=== PATIENT | male | born 1955 | race Caucasian/White ===

== ENCOUNTER → 2025-01-31 | Outpatient (CLI) | payer MEDICARE, OTHER, SELFPAY ==
--- NOTE | 2025-01-31 14:18 | ST.MBS ---
Modified Barium Swallow Patient Information Study Date: 01/31/25 Study Time: 13:00 Direct Billable Minutes: 81 Total Minutes procedure & reportin Diagnosis: Dysphagia R13.10 Referring Physician: Sherif Leiva Reason for Referral: The patient was referred for MBSS due to coughing when consuming foods. No choking episodes; however, he will cough and turn bright red from coughing at times. He consumes regular textures / thin liquids. He also has some difficulty getting medications down and sometimes pushes pills to the back of his mouth using his finger. 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 PER TRIAL): PENETRATION / ASPIRATION SCALE (SHEETS): 1 = does not enter airway 2 = enters airway/above vocal folds/ejected 3 = enters airway/above vocal folds/not ejected 4 = enters airway/contacts vocal folds/ejected 5 = enters airway/contacts vocal folds/not ejected 6 = enters airway/below vocal folds/ejected 7 = enters airway/below vocal folds/not ejected despite effort 8 = enters airway/below vocal folds/no effort VIDEOFLOROSCOPIC SCALE SCORE (SHEETS): Grade I = aspiration of material that has penetrated into the laryngeal vestibule, intact cough reflex Grade II = aspiration < 10 % of the bolus, intact cough reflex Grade III = aspiration of < 10 % of the bolus, reduced cough reflex or aspiration of > 10 % of the bolus, intact cough reflex Grade IV = aspiration of > 10 % of the bolus, reduced cough reflex Penetration-Aspiration Scale Score Thin Liquid via teaspoon: Result: 1= does not enter airway Thin Liquid via teaspoon Trial 2: Result: 1= does not enter airway Thin Liquid via large single sip: cup: Result: 2= enter airway/above vocal folds/ejected Comment: Coughing immediately after the trial, unrelated to aspiration. Laryngeal vestibule and trachea appeared clear of barium contrast. Cale Thick Liquid via large single sip: cup: Result: 1= does not enter airway Pudding via teaspoon: Result: 1= does not enter airway Comment: Esophageal screen - Retention throughout the middle and lower esophagus. Coughing immediately after the trial, unrelated to aspiration. Laryngeal vestibule and trachea appeared clear of barium contrast. Thin Liquid via single sip: straw: Result: 1= does not enter airway Comment: Esophageal screen - Liquid wash somewhat cleared pudding; however, continued retention of barium in the lower esophagus w/ retrograde flow to the middle esophagus. 1/2 Cookie: Result: 1= does not enter airway Comment: Esophageal screen - Retention throughout the middle and lower esophagus. Thin Liquid via sequential sips:straw: Result: 2= enter airway/above vocal folds/ejected Comment: Esophageal screen - Liquid wash mostly cleared cookie retention. Barium tablet w/ water: Result: 1= does not enter airway Comment: Esophageal screen - Tablet appeared to clear through the LES. Coughing immediately after the trial, SPOOL [employer]ER cannot definitively rule out aspiration of water. Barium tablet w/ pudding: Result: 1= does not enter airway Comment: Esophageal screen - Mild retention of barium pudding in the lower esophagus w/ minimal retrograde flow. Oral Phase Labial Seal: No Labial Escape Tongue Control During Bolus Hold: Posterior escape of less than half of bolus Bolus Preparation/Mastication: Slow prolonged chewing/mashing with complete recollection Bolus Transport/Lingual Motion: Repetitive/disorganized tongue motion (lingual pumping) Oral Residue: Residue collection on oral structures Pharyngeal Phase Initiation of Pharyngeal Swallow: Bolus head in pyriforms Soft Palate Elevation: Trace column of contrast/air between soft palate and pharyngeal wall Laryngeal Elevation: Comp. Superior move thyroid cart w/comp. apprx arytenoid cart-epig pet Anterior Hyoid Excursion: Partial anterior movement Epiglottic Movement: Complete inversion Laryngeal Vestibule Closure at Height of Swallow: Incomplete; narrow column of air/contrast in laryngeal vestibule (laryngeal penetration, which fully ejected during the swallow) Pharyngeal Stripping Wave: Present - complete Pharyngoesophageal Segment Opening: Parital distension and partial duration; parital obstruction of flow Tongue Base Retraction: Trace column of contrast between tongue base & post. pharyngeal wall Pharyngeal Residue: Trace residue within or on pharyngeal structures Esophageal Phase Esophageal Clearance: Esophageal retention w/ retrograde flow below pharyngoesophageal seg. Diagnosis/Impression Diagnosis: Esophageal dysphagia R13.14; Mild oropharyngeal dysphagia R13.12 Impression: The oral phase is primarily marked by... -Decreased bolus control of <1/2 of some thin liquid trials to the pharynx prior to swallow onset. -Lingual pumping for A-P transport of pudding. -Slowed, but complete mastication of cookie. The pharyngeal phase is primarily marked by... -Delayed swallow onset. -Decreased anterior hyoid excursion w/ trace laryngeal penetration during some thin liquid trials, which fully ejected during the swallow due to good laryngeal elevation. No aspiration observed despite coughing 3X immediately after trials. Cannot definitively rule out aspiration of thin water w/ barium tablet. The esophageal phase is primarily marked by... -Retention of pudding and cookie in the middle and lower esophagus, which somewhat cleared w/ thin liquid wash. -Small CP-bar at the level of C5-C6, which did not appear to greatly impact bolus clearance; however, intermittent trace retention of barium in the UES. Recommendations Diet: Easy to Chew Textures (Moisten dry textures) and Thin Liquids Comment: Medications whole, one at a time in puree w/ a liquid wash after taking each medication Compensatory Strategies: Small Bites, Slow Rate, Alternate bites/solids and sips/liquids (Take a sip after every 1-2 bites), Sitting upright (During meals and 60min after) and Assist with verbal cues to use recommended strategies Supervision: Assist as needed Recommend Repeat Modified Barium Swallow: TBD Need for Skilled Speech Therapy Services: Yes Comment: 1. Dysphagia evaluation and treatment w/ POC to include... -Training the patient in use of strategies to decrease risk for aspiration and reflux aspiration. -Ongoing assessment of diet tolerance of recommended textures. -Training the patient in oropharyngeal exercise program to improve bolus control, anterior hyoid excursion, and swallow onset (lingual resistance, lingual coordination, Brayan, CTAR). 2. Cognitive-linguistic evaluation as pt is reporting concerns for worsening memory and word finding. No concern for deficits in speech clarity at this time. Recommended Referrals: GI Consult Education Completed: 1. Described result of evaluation., 2. Pt understands evaluation & agrees with goals and treatment plan., 4. Family/caregivers understand evaluation & agree w/ goals & tx plan. and 7. Pt requires further education on strategies & risks. Status Active ST Patient: Active Contact Information [facility] Speech Therapy:: Candelaria Bhagat M.A. [facility]? Speech-Language Pathologist?? [facility] [address] [place] [address]? [email or web address]?? [phone]
== END | disposition home or self-care (01) ==
PROVIDERS: PCP Preventive Medicine Occupational Medicine; Referring Provider Preventive Medicine Occupational Medicine; Visit Provider Preventive Medicine Occupational Medicine
DX: R13.10 Dysphagia, unspecified (principal)
CPT/HCPCS: 74230; 92611